=== PATIENT | male | born 1965 | race Caucasian/White ===

== ENCOUNTER 2020-04-11 10:58 | Emergency (ER) | payer MEDICARE, OTHER ==
[2020-04-11 12:44] LABS: HEMOGLOBIN 15.6 gm/dl (14.0-17.5); RED BLOOD COUNT 5.01 M/UL (4.20-5.50); WHITE BLOOD COUNT 12.3 K/UL (4.5-11.0)
[2020-04-11 13:16] LABS: BUN/CREATININE RATIO 18 (0-10)
== END 2020-04-11 19:00 | disposition short-term general hospital (02) ==
LOC: ER1 10:58
PROVIDERS: Family Medicine
DX: I61.1 Nontraumatic intracerebral hemorrhage in hemisphere, cortical (principal); R29.810 Facial weakness; G82.20 Paraplegia, unspecified; I50.9 Heart failure, unspecified; I48.91 Unspecified atrial fibrillation; Z86.73 Personal history of transient ischemic attack (TIA), and cerebral infarction without residual deficits; Z79.899 Other long term (current) drug therapy; Z79.01 Long term (current) use of anticoagulants
CPT/HCPCS: 70450; 71045; 80053; 81001; 82550; 82553; 82962; 83874; 84484; 85025; 85610; 87077; 87086; 87186; 93005; 96365; 96366; 96368; 99285; C9132; J2543

== ENCOUNTER 2020-08-13 17:28 | Observation (INO) | payer MEDICARE, OTHER ==
[~2020-08-13] VITALS: Ht 177.8 cm; Wt 65.5 kg
[2020-08-13 18:12] LABS: HEMOGLOBIN 14.2 gm/dl (14.0-17.5); RED BLOOD COUNT 4.57 M/UL (4.20-5.50); WHITE BLOOD COUNT 6.2 K/UL (4.5-11.0)
[2020-08-13 18:36] LABS: BUN/CREATININE RATIO 23 (0-10)
[2020-08-14] MEDS ORDERED: ATORVASTATIN CA20 MG GT (00:49)
[2020-08-14] MEDS ORDERED: AMLODIPINE BESY10 MG GT (00:49)
[2020-08-14] MEDS ORDERED: LISINOPRIL30 MG GT (00:51)
[2020-08-14] MEDS ORDERED: XYZAL2.5 MG/5 M GT (00:51)
[2020-08-14] MEDS ORDERED: PAROXETINE HCL30 MG GT (00:52)
[2020-08-14] MEDS ORDERED: METOPROLOL SUC100 MG GT (00:52)
[2020-08-14] MEDS ORDERED: MIRALAX17 GM GT (00:53)
[2020-08-14] MEDS ORDERED: POTASSIUM20 MEQ/15 GT (00:54)
[2020-08-14 06:01] LABS: HEMOGLOBIN 15.1 gm/dl (14.0-17.5); RED BLOOD COUNT 4.8 M/UL (4.20-5.50); WHITE BLOOD COUNT 7.3 K/UL (4.5-11.0)
[2020-08-14 06:23] LABS: BUN/CREATININE RATIO 19 (0-10)
[2020-08-15 06:21] LABS: HEMOGLOBIN 13.8 gm/dl (14.0-17.5); RED BLOOD COUNT 4.44 M/UL (4.20-5.50); WHITE BLOOD COUNT 6.9 K/UL (4.5-11.0)
[2020-08-15 07:20] LABS: BUN/CREATININE RATIO 18 (0-10)
[2020-08-16] MEDS ORDERED: LEVOFLOXACIN750 MG PO (13:07)
--- NOTE | 2020-08-16 13:26 | NUR ---
08/16/20 [id number] REPORT CALLED TO GORAN AT [facility]
== END 2020-08-16 15:40 | disposition home or self-care (01) ==
LOC: ER1 17:28 → CDU 21:32 → MED SURG 4 21:32
PROVIDERS: Emergency Medicine; Internal Medicine; ADMIT Internal Medicine Infectious Disease
DX: N30.00 Acute cystitis without hematuria (principal); B96.5 Pseudomonas (aeruginosa) (mallei) (pseudomallei) as the cause of diseases classified elsewhere; K59.00 Constipation, unspecified; K13.79 Other lesions of oral mucosa; I69.320 Aphasia following cerebral infarction; I69.391 Dysphagia following cerebral infarction; R13.10 Dysphagia, unspecified; E11.9 Type 2 diabetes mellitus without complications; K21.9 Gastro-esophageal reflux disease without esophagitis; D69.6 Thrombocytopenia, unspecified; I48.0 Paroxysmal atrial fibrillation; I11.0 Hypertensive heart disease with heart failure; I50.9 Heart failure, unspecified; F44.4 Conversion disorder with motor symptom or deficit; E78.5 Hyperlipidemia, unspecified; Z20.822 Contact with and (suspected) exposure to COVID-19; Z93.1 Gastrostomy status; Z79.4 Long term (current) use of insulin; Z79.899 Other long term (current) drug therapy; Z74.01 Bed confinement status; Z87.891 Personal history of nicotine dependence; Z99.81 Dependence on supplemental oxygen
CPT/HCPCS: 0240U; 36415; 70450; 71250; 80048; 80053; 81001; 82962; 83036; 83605; 83690; 83735; 84443; 85025; 85027; 87040; 87077; 87086; 87186; 93005; 94640; 94664; 94760; 96374; 96376; 99285; G0378; J2543

== ENCOUNTER → 2020-08-28 | Outpatient (CLI) | payer MEDICARE, OTHER ==
[~2020-08-28] MED LIST: AMLODIPINE BESY10 MG GT; ATORVASTATIN CA20 MG GT; LEVOFLOXACIN750 MG PO; LISINOPRIL30 MG GT; METOPROLOL SUC100 MG GT; MIRALAX17 GM GT; PAROXETINE HCL30 MG GT; POTASSIUM20 MEQ/15 GT; XYZAL2.5 MG/5 M GT
== END ==
LOC: KOH-I 08-16 09:30
DX: I62.9 Nontraumatic intracranial hemorrhage, unspecified (principal)
CPT/HCPCS: 70450

== ENCOUNTER → 2021-02-01 | Outpatient (CLI) | payer MEDICARE, OTHER ==
[2021-02-01 16:49] LABS: HEMOGLOBIN 14.2 gm/dl (14.0-17.5); RED BLOOD COUNT 4.54 M/UL (4.20-5.50); WHITE BLOOD COUNT 6.8 K/UL (4.5-11.0)
[2021-02-01 17:17] LABS: BUN/CREATININE RATIO 24 (0-10)
== END ==
LOC: LBRF 15:41
PROVIDERS: Internal Medicine Geriatric Medicine
DX: I10 Essential (primary) hypertension (principal)
CPT/HCPCS: 80053; 85025

== ENCOUNTER → 2021-02-20 | Outpatient (CLI) | payer MEDICARE, OTHER ==
[2021-02-20 15:53] LABS: HEMOGLOBIN 14.3 gm/dl (14.0-17.5); RED BLOOD COUNT 4.59 M/UL (4.20-5.50); WHITE BLOOD COUNT 13.6 K/UL (4.5-11.0)
[2021-02-20 16:27] LABS: BUN/CREATININE RATIO 20 (0-10)
== END ==
LOC: LBRF 15:30
PROVIDERS: Internal Medicine Geriatric Medicine
DX: I10 Essential (primary) hypertension (principal)
CPT/HCPCS: 80053; 85025

== ENCOUNTER 2021-04-18 11:06 | Inpatient (IN) | payer MEDICARE, OTHER ==
[~2021-04-18] VITALS: Ht 177.8 cm; Wt 90.7 kg
[2021-04-18 12:10] LABS: HEMOGLOBIN 13.9 gm/dl (14.0-17.5); RED BLOOD COUNT 4.57 M/UL (4.20-5.50); WHITE BLOOD COUNT 3.7 K/UL (4.5-11.0)
[2021-04-18 12:42] LABS: BUN/CREATININE RATIO 32 (0-10)
[2021-04-18] MEDS ORDERED: MULTIVITAMIN1 EACH PO (16:01)
[2021-04-18] MEDS ORDERED: VITAMIN B-121000 MCG PO (16:02)
[2021-04-18] MEDS ORDERED: TYLENOL EXTRA500 MG PO (16:02)
[2021-04-18] MEDS ORDERED: ASCORBIC ACID500 MG PO (16:02)
[2021-04-18] MEDS ORDERED: WHEY PROTEIN PEG (19:09)
[2021-04-18] MEDS ORDERED: GLUCERNA PEG (19:10)
[2021-04-19 04:50] LABS: HEMOGLOBIN 13.1 gm/dl (14.0-17.5); RED BLOOD COUNT 4.34 M/UL (4.20-5.50)
[2021-04-19 04:55] LABS: WHITE BLOOD COUNT 1.8 K/UL (4.5-11.0)
[2021-04-19 05:11] LABS: BUN/CREATININE RATIO 30 (0-10)
[2021-04-19 13:38] LABS: ACINETOBACTER BAUMANNII Not Detected (Negative); CANDIDA ALBICANS Not Detected (Negative); CANDIDA KRUSEI Not Detected (Negative); CANDIDA TROPICALIS Not Detected (Negative); ENTEROCOCCUS Not Detected (Negative); ESCHERICHIA COLI Not Detected (Negative); HAEMOPHILUS INFLUENZAE Not Detected (Negative); KLEBSIELLA OXYTOCA Not Detected (Negative); KLEBSIELLA PNEUMONIAE Not Detected (Negative); KPC-CARBAPENEM-RESISTANCE GENE Not Detected (Negative); PROTEUS Not Detected (Negative); PSEUDOMONAS AERUGINOSA Not Detected (Negative); SERRATIA MARCESANS Not Detected (Negative); STAPHYLOCOCCUS AUREUS Not Detected (Negative); STREP AGALACTIAE (GROUP B) Not Detected (Negative); STREP PYOGENES (GROUP A) Not Detected (Negative); STREPTOCOCCUS Not Detected (Negative); mecA (METHICILLIN RESIST GENE Not Detected (Negative); vanA/B (VANCOMYCIN RESIST GENE Not Detected (Negative)
[2021-04-19 17:28] LABS: STAPHYLOCOCCUS DETECTED (Negative)
[2021-04-20 07:17] LABS: HEMOGLOBIN 12.6 gm/dl (14.0-17.5); RED BLOOD COUNT 4.2 M/UL (4.20-5.50)
[2021-04-20 07:24] LABS: WHITE BLOOD COUNT 6.2 K/UL (4.5-11.0)
[2021-04-20 07:51] LABS: BUN/CREATININE RATIO 29 (0-10)
[2021-04-21 06:07] LABS: HEMOGLOBIN 12.5 gm/dl (14.0-17.5); RED BLOOD COUNT 4.11 M/UL (4.20-5.50); WHITE BLOOD COUNT 6.1 K/UL (4.5-11.0)
[2021-04-21 06:45] LABS: BUN/CREATININE RATIO 31 (0-10)
--- NOTE | 2021-04-21 13:32 | NUR ---
SPOKE WITH NELY. SHE STATES CATH WAS CHANGED ON 04/18/21 BY [facility]. PT WAS TREATED LAST MONTH FOR A UTI AND THEY ARE BECOMING MORE FREQUENT OVER THE LAST YEAR.
[2021-04-22 05:54] LABS: HEMOGLOBIN 13.5 gm/dl (14.0-17.5); RED BLOOD COUNT 4.45 M/UL (4.20-5.50); WHITE BLOOD COUNT 6.7 K/UL (4.5-11.0)
[2021-04-22 06:57] LABS: BUN/CREATININE RATIO 27 (0-10)
[2021-04-23 06:10] LABS: HEMOGLOBIN 13.5 gm/dl (14.0-17.5); RED BLOOD COUNT 4.44 M/UL (4.20-5.50); WHITE BLOOD COUNT 5.6 K/UL (4.5-11.0)
[2021-04-23 06:34] LABS: BUN/CREATININE RATIO 24 (0-10)
[2021-04-24 05:44] LABS: BUN/CREATININE RATIO 30 (0-10)
--- NOTE | 2021-04-24 18:20 | NUR ---
20/8 MIDLINE PLACED IN RIGHT BASILIC VEIN XS 2 STICKS {PER MIKE LYMAN} PT ASHLEY WELL REFERENCE NUMBER [id number] LOT# [id number]
[2021-04-25 05:01] LABS: BUN/CREATININE RATIO 40 (0-10)
[2021-04-26] MEDS ORDERED: AMOX TR-K CLV1 EAC4 GT (08:59)
[2021-04-26] MEDS ORDERED: HYDRALAZINE HCL25 MG PO (12:24)
== END 2021-04-26 21:11 | disposition home health service (06) | DRG 177 ==
LOC: ER1 11:06 → M/S 14:29 → CDU 14:29 → M/S 18:15
PROVIDERS: Nurse Practitioner; Physician Assistant Medical; ADMIT Internal Medicine
PROC: 8E0ZXY6 Isolation (ICD-10-PCS; principal; 2021-04-18)
PROC: XW033E5 Introduction of Remdesivir Anti-infective into Peripheral Vein, Percutaneous Approach, New Technology Group 5 (ICD-10-PCS; 2021-04-18)
PROC: 3E0333Z Introduction of Anti-inflammatory into Peripheral Vein, Percutaneous Approach (ICD-10-PCS; 2021-04-18)
DX: U07.1 COVID-19 (principal); J12.82 Pneumonia due to coronavirus disease 2019; J96.01 Acute respiratory failure with hypoxia; J15.9 Unspecified bacterial pneumonia; G82.50 Quadriplegia, unspecified; T83.518A Infection and inflammatory reaction due to other urinary catheter, initial encounter; N30.00 Acute cystitis without hematuria; E87.0 Hyperosmolality and hypernatremia; I48.0 Paroxysmal atrial fibrillation; I50.9 Heart failure, unspecified; E78.5 Hyperlipidemia, unspecified; E11.65 Type 2 diabetes mellitus with hyperglycemia; B96.5 Pseudomonas (aeruginosa) (mallei) (pseudomallei) as the cause of diseases classified elsewhere; B95.2 Enterococcus as the cause of diseases classified elsewhere; F17.200 Nicotine dependence, unspecified, uncomplicated; I11.0 Hypertensive heart disease with heart failure; D69.6 Thrombocytopenia, unspecified; Z66 Do not resuscitate; F41.9 Anxiety disorder, unspecified; Y84.6 Urinary catheterization as the cause of abnormal reaction of the patient, or of later complication, without mention of misadventure at the time of the procedure; T38.0X5A Adverse effect of glucocorticoids and synthetic analogues, initial encounter; Z96.651 Presence of right artificial knee joint; Z98.890 Other specified postprocedural states; Z93.1 Gastrostomy status; Z82.49 Family history of ischemic heart disease and other diseases of the circulatory system; Z83.3 Family history of diabetes mellitus; Z79.01 Long term (current) use of anticoagulants; Z79.899 Other long term (current) drug therapy; I69.320 Aphasia following cerebral infarction; Z99.81 Dependence on supplemental oxygen; Z74.01 Bed confinement status
CPT/HCPCS: 0240U; 36415; 71045; 80048; 80053; 81001; 82550; 82553; 82803; 82962; 83036; 83605; 83735; 83874; 84484; 85025; 85027; 85652; 86140; 87040; 87077; 87086; 87150; 87186; 93005; 94640; 94664; 94760; 96365; 96375; 99285; A6212; C1751; J0248; J1100; J2185; J2543; J3370; J7030; J7070